=== PATIENT | female | born 1950 | race African-American/Black ===

== ENCOUNTER 2019-07-12 12:04 | Emergency (ER) | payer MEDICARE, OTHER ==
[~2019-07-12] VITALS: Ht 177.8 cm; Wt 95.3 kg
[2019-07-12 12:16] VITALS: BP 130/83
[2019-07-12] MEDS ORDERED: NKM (12:19)
--- NOTE | 2019-07-12 12:37 | Emergency Room Report ---
History of Present Illness General Chief Complaint: Upper Respiratory Illness Source: Patient Present Illness HPI 68-year-old female who is a current daily smoker presents to the emergency department complaining of nonproductive cough without fevers or chills x1 day. Patient reports cough is worse at night she states that she feels as though she has phlegm in her throat but it will not come out. Pt. denies pain. Patient denies swelling in legs, chest pain, headache, neck pain/stiffness, recent travel or ill contacts. Denies hx of GERD. Patient states she is up-to-date with vaccinations including this years flu vaccine. Patient denies any other aggravating or relieving factors she denies any other symptoms. Patient reports history of bronchitis in the past no other significant past medical history. Allergies: Coded Allergies: No Known Allergies (Unverified , 07/12/19) Patient History Past Medical History: see triage record Past Surgical History: none Pertinent Family History: none Social History: Reports: smoking Now: No Immunizations: UTD Reviewed Nursing Documentation: PMH: Agreed; PSxH: Agreed Nursing Documentation-PMH Past Medical History: No Stated History Review of Systems All Other Systems: negative except mentioned in HPI Physical Exam Vital Signs Date Time Temp Pulse Resp B/P (MAP) Pulse Ox O2 Delivery O2 Flow Rate FiO2 07/12/19 12:16 98.6 16 130/83 92 Room Air 07/12/19 12:16 70 Sp02 EP Interpretation: reviewed, normal General Appearance: no apparent distress, alert, GCS 15, non-toxic Head: normocephalic, atraumatic Eyes: bilateral eye normal inspection, bilateral eye PERRL ENT: hearing grossly normal, normal voice Neck: full range of motion Respiratory: chest non-tender, lungs clear, normal breath sounds, no respiratory distress, no accessory muscle use, no wheezing, speaking full sentences Cardiovascular #1: regular rate, rhythm, no edema, normal capillary refill Musculoskeletal: gait/station normal, normal range of motion, non-tender Neurologic: alert, oriented x3, responsive, motor strength/tone normal, sensory intact, speech normal, grossly normal Psychiatric: judgement/insight normal Medical Decision Making PA Attestation Dr. Min is my supervising Physician whom patient management has been discussed with. Diagnostic Impression: Primary Impression: Acute bronchitis Qualified Codes: J20.9 - Acute bronchitis, unspecified ER Course 68-year-old female who is a current daily smoker presents to the emergency department complaining of nonproductive cough without fevers or chills x1 day. Patient reports cough is worse at night she states that she feels as though she has phlegm in her throat but it will not come out. Pt. denies pain. Patient denies swelling in legs, chest pain, headache, neck pain/stiffness, recent travel or ill contacts. Denies hx of GERD. Patient states she is up-to-date with vaccinations including this years flu vaccine. Patient denies any other aggravating or relieving factors she denies any other symptoms. Patient reports history of bronchitis in the past no other significant past medical history. Ddx considered but are not limited to URI, pneumonia, PE, strep pharyngitis, meningitis. Vital signs: Pt.is afebrile VS are WNL H&PE are most consistent with bronchitis ORDERS: none required at this time, the diagnosis is clinical ED INTERVENTIONS: None required at this time. DISCHARGE: At this time pt. is stable for d/c to home. Will provide printed patient care instructions, and any necessary prescriptions. Care plan and follow up instructions have been discussed with the patient prior to discharge. Last Vital Signs Date Time Temp Pulse Resp B/P (MAP) Pulse Ox O2 Delivery O2 Flow Rate FiO2 07/12/19 12:20 70 16 Room Air 07/12/19 12:16 98.6 130/83 (99) 92 Status: improved Disposition: HOME, SELF-CARE Condition: Stable Scripts Guaifenesin (Mucinex) 1,200 Mg Tab.er.12h 1200 MG PO Q12HR, #20 TAB Prov: Adamaris Galvez 07/12/19 Albuterol Sulfate* (ALBUTEROL SULFATE MDI*) 8.5 Gm Hfa.aer.ad 2 PUFF INH Q3H, #1 INH 0 Refills Prov: Adamaris Galvez 07/12/19 Codeine/Promethazine Hcl* (PROMETHAZINE-CODEINE SYRUP*) 118 Ml Syrup 5 ML ORAL Q6H PRN for For Cough, #120 ML 0 Refills Prov: Adamaris Galvez 07/12/19 Patient Instructions: Acute Bronchitis, [id number] Additional Instructions: Take medications as directed. Follow up with a Primary Care Provider in 3-5 days, even if your symptoms have resolved. Return sooner to ED if new symptoms occur, or current symptoms become worse. Do not drink alcohol, drive, or operate heavy machinery while taking Cough Syrup as this may cause drowsiness. - Please note that this Emergency Department Report was dictated using [email or web address] pilot technology software, occasionally this can lead to erroneous entry secondary to interpretation by the dictation equipment. Adamaris Galvez Jul 12, 2019 12:37
[2019-07-12] MEDS ORDERED: PROMETHAZINE-C118 M1 ORAL (12:39)
[2019-07-12] MEDS ORDERED: MUCINEX1200 MG PO (12:39)
[2019-07-12] MEDS ORDERED: ALBUTEROL SULF8.5 GM INH (12:39)
--- NOTE | 2019-07-12 12:50 | NUR ---
ER DISCHARGE NOTE: Patient is cleared to be discharged per ERMD, pt is aox4, on room air, with stable vital signs. pt was given dc and prescription instructions, pt was able to verbalize understanding, pt is able to ambulate with steady gait. pt took all belongings.
[2019-07-12 13:13] VITALS: BP 130/83
== END 2019-07-12 13:00 | disposition home or self-care (01) ==
LOC: EMR 12:30
DX: J20.9 Acute bronchitis, unspecified (principal); F17.200 Nicotine dependence, unspecified, uncomplicated
CPT/HCPCS: 99282